=== PATIENT | female | born 1965 ===

== ENCOUNTER 2024-07-21 14:51 | Emergency (ER) | payer SELFPAY ==
[2024-07-21] MEDS ORDERED: Sodium Chloride 0.9% 10 ML Syringe FLUSH PRN (14:52)
[2024-07-21 15:07] LABS: BASOPHILS PERCENT AUTO 0.2 % (0.0-1.0); EOSINOPHILS PERCENT AUTO 1.1 % (1.0-3.0); HEMATOCRIT 41.5 % (37.0-47.0); HEMOGLOBIN 13.1 g/dL (12.0-16.0); LYMPHOCYTES PERCENT AUTO 30.6 % (20.5-50.1); MEAN CORPUSCULAR HEMOGLOBIN 30.4 pg (27.0-34.0); MEAN CORPUSCULAR HGB CONC 31.6 g/dL (33.0-35.0); MEAN CORPUSCULAR VOLUME 96.3 fL (80-100); MONOCYTES PERCENT AUTO 8.5 % (2-8); NEUTROPHILS PERCENT AUTO 59.6 % (42.2-75.2); PLATELET COUNT,PLT 235 10^3/uL (150-450); RED BLOOD CELL COUNT 4.31 10^6/uL (4.2-5.4); WHITE BLOOD CELL COUNT,WBC 10.2 10^3/uL (5.0-10.0)
[2024-07-21 15:39] LABS: ANION GAP 12.9 mEq/L (7-13); BILIRUBIN TOTAL 0.6 mg/dL (0.2-1.0); BUN/CREATININE RATIO 11.5 (No establ ref range); C-REACTIVE PROTEIN 2.17 ng/dL (<=0.50); CALCIUM 9.2 mg/dL (8.5-10.1); CREATININE 0.87 mg/dL (0.55-1.02); EST CRCL DRUG DOSING (CG) 65.18 mL/min; MAGNESIUM 2.1 mg/dL (1.8-2.4); POTASSIUM,K 3.9 mmol/L (3.5-5.1); PROTEIN TOTAL,TP 9.4 g/dL (6.4-8.2)
[2024-07-21 15:44] LABS: A/G RATIO 0.47
[2024-07-21] MEDS: Iopamidol 755 Mg/ML 100 ML Bottle IVPUSH ONE (15:54)
[2024-07-21] MEDS: Ketorolac 30 MG/ML SDV IVPUSH ONE (17:29)
[2024-07-21] MEDS: Labetalol 20 MG/4 ML Syringe IVPUSH ONE (17:29)
== END 2024-07-21 17:47 | disposition home or self-care (01) ==
LOC: DL.ED 14:51
DX: B34.9 Viral infection, unspecified (principal); I10 Essential (primary) hypertension; R91.1 Solitary pulmonary nodule; Z88.5 Allergy status to narcotic agent; Z79.899 Other long term (current) drug therapy
CPT/HCPCS: 36415; 71275; 80053; 83735; 84484; 85025; 85379; 86140; 93005; 93010; 96374; 96375; 99284; 99285; J1885; J1920; Q9967